=== PATIENT | male | born 1965 | race Caucasian/White ===

== ENCOUNTER 2019-08-09 20:58 | Emergency (ER) | payer SELFPAY ==
[~2019-08-09] VITALS: Ht 188 cm; Wt 118.0 kg
[2019-08-09 23:16] LABS: BASOPHILS % 0.6 % (0.0-2.0); HEMATOCRIT. 39.5 % (42.0-52.0); HEMOGLOBIN. 13.5 g/dL (14.0-18.0); LYMPHOCYTES % 21.2 % (20.0-50.0); MEAN CORPUSCULAR HEMOGLOBIN 32.7 pg (28.0-32.0); MEAN CORPUSCULAR VOLUME 95.2 fL (80.0-94.0); MEAN PLATELET VOLUME 7.9 fl (7.4-10.4); MONOCYTES % 5.6 % (2.0-8.0); NEUTROPHILS % 71.6 % (40.0-76.0); PLATELET 176 x1000/uL (130-400); RED BLOOD CELL COUNT 4.14 mill/uL (4.7-6.1)
[2019-08-09 23:17] LABS: CHLORIDE 110 mEq/L (98-107)
[2019-08-09 23:48] LABS: ETHANOL BLOOD 380 mg/dL
[2019-08-10 07:17] VITALS: BP 144/91
== END 2019-08-10 07:19 | disposition home or self-care (01) ==
LOC: EDBD 20:58 → ER 20:58
DX: T51.0X1A Toxic effect of ethanol, accidental (unintentional), initial encounter (principal); Y92.89 Other specified places as the place of occurrence of the external cause
CPT/HCPCS: 36415; 80053; 80307; 80320; 80329; 85025; 99283; G0480